=== PATIENT | male | born 1985 | race Caucasian/White ===

== ENCOUNTER → 2019-02-15 09:05 | Outpatient (CLI) | payer MEDICARE, SELFPAY ==
--- NOTE | 2019-02-15 09:08 | XR_ITS ---
XR wrist LT min 3V HISTORY ITS.REASON: pain ORDERING PHYSICIAN: Rosalva Ramirez APRN PATIENT AGE: 34 years Comparison: None FINDINGS: No fracture or dislocation. No lytic or blastic change. There is normal mineralization.. The joint spaces are well-preserved. No significant degenerative/arthritic changes. No erosive changes evident.. There is generalized vascular calcification. There is some cortical irregularity involving the distal aspect of the radial styloid process. There is a well-circumscribed calcific density on the AP view between the junction of the capitate, hamate, lunate and triquetrum. No other significant anomalies are evident. IMPRESSION: There is some minimal cortical irregularity involving the tip of the radial styloid process. This may be seen with underlying synovial inflammation. Rheumatoid arthritis could cause this finding.
== END ==
PROVIDERS: PCP Emergency Medicine; Visit Provider Nurse Practitioner Family
DX: M25.439 Effusion, unspecified wrist (principal); M25.532 Pain in left wrist
CPT/HCPCS: 73110

== ENCOUNTER → 2019-03-16 11:46 | Outpatient (CLI) | payer MEDICARE, SELFPAY ==
[2019-03-16 14:00] LABS: Erythrocyte Sedimentation Rate 133 mm/hr (0-15)
[2019-03-16 14:08] LABS: Basophils % 0.2 % (0.1-2.0); Eosinophils # 0.1 K/mm3 (0.0-0.4); Eosinophils % 2.3 % (0.1-12.0); Hematocrit 28.2 % (42.0-52.0); Hemoglobin 9.2 g/dL (14.1-18.0); Lymphocytes # 1.2 K/mm3 (0.7-4.5); Lymphocytes % 19.9 % (10-50); Mean Corpuscular HGB Conc 32.5 g/dL (31.8-35.4); Mean Corpuscular Hemoglobin 28.7 pg (27.0-31.2); Mean Corpuscular Volume 88.3 fl (80-94); Mean Platelet Volume 7.1 fl (7.4-10.4); Monocytes # 0.5 K/mm3 (0.1-1.0); Monocytes % 7.5 % (1.7-9.3); Neutrophils # 4.4 K/mm3 (1.8-7.8); Neutrophils % 70.1 % (37.0-80.0); Platelet Count 316 K/mm3 (142-424); Red Blood Count 3.19 M/mm3 (4.60-6.20); Red Cell Distribution Width 14.2 % (11.5-17.5); White Blood Count 6.2 K/mm3 (4.8-10.8)
[2019-03-16 14:31] LABS: Alanine Aminotransferase 16 U/L (12-78); Albumin Level 3.1 gm/dL (3.4-5.0); Alkaline Phosphatase 202 U/L (46-116); Anion Gap 17.2 mEq/L (5-15); Aspartate Amino Transferase 8 U/L (15-37); Bilirubin,Total 0.6 mg/dL (0.2-1.0); Blood Urea Nitrogen 65 mg/dL (7-18); C-Reactive Protein 0.7 mg/dL (0.0-0.9); Calcium 9.7 mg/dL (8.5-10.1); Carbon Dioxide 25 mmol/L (21.0-32.0); Chloride 102 mmol/L (98-107); Estimated Glomerular Filt Rate 8 ml/min (>60); GFR (African American) 9 ML/MIN (>60); Globulin 3.2 gm/dl (1.3-3.2); Glucose 108 mg/dL (74-106); Potassium 3.2 mmoL/L (3.5-5.1); Sodium 141 mmol/L (136-145); Total Protein,Serum 6.3 gm/dL (6.4-8.2)
[2019-03-16 14:34] LABS: Creatinine,Serum 7.86 mg/dL (0.70-1.30)
[2019-03-17 14:10] LABS: Anti-Centromere B Antibodies <0.2 AI (0.0-0.9); Anti-Jo-1 <0.2 AI (0.0-0.9); Anti-Smith Antibody <0.2 AI (0.0-0.9); Antichromatin Antibodies <0.2 AI (0.0-0.9); Antiscleroderma-70 Antibodies <0.2 AI (0.0-0.9); RNP Antibodies <0.2 AI (0.0-0.9); Sjogren's Anti-SS-A <0.2 AI (0.0-0.9); Sjogren's Anti-SS-B <0.2 AI (0.0-0.9)
[2019-03-18 06:13] LABS: Anti-Cyclic Citrullinated Pept <1 units (0-19); Anti-DNA (DS) Ab Qn <1 IU/mL (0-9); RA Latex Turbid. 14.1 IU/mL (0.0-13.9)
[2019-03-18 08:13] LABS: PTT-LA 44.9 sec (0.0-51.9); dRVVT 52.4 sec (0.0-47.0); dRVVT Mix 42.3 sec (0.0-47.0)
[2019-03-18 12:34] LABS: Lupus Reflex Interpretation Comment: (.)
== END ==
PROVIDERS: Visit Provider Nurse Practitioner Family
DX: M25.50 Pain in unspecified joint (principal); G47.00 Insomnia, unspecified
CPT/HCPCS: 36415; 80053; 85025; 85613; 85651; 86140; 86200; 86225; 86235; 86431

== ENCOUNTER → 2019-08-12 14:37 | Outpatient (CLI) | payer MEDICARE, SELFPAY ==
[2019-08-12 14:39] LABS: Microscopic, Urine URINE MICROSCOPIC (MICROSCOPIC)
[2019-08-12 15:04] LABS: Amphetamine/Metha Screen,Urine Negative ng/mL (<1000); Barbiturates Screen,Urine Negative ng/mL (<200); Benzodiazepines Screen,Urine Negative ng/mL (<200); Cannabinoid Screen,Urine Negative ng/mL (<50); Cocaine Screen,Urine Negative ng/mL (<300); Methadone Screen,Urine Negative ng/mL (<300); Opiate Screen,Urine Negative ng/mL (<300); Phencyclidine Screen,Urine Negative ng/mL (<25)
[2019-08-12 15:08] LABS: Appearance,Urine CLEAR (Clear); Bilirubin,Urine Negative (Negative); Blood, Urine 2+ (Negative); Color,Urine YELLOW (Yellow); Glucose,Urine (UA) Negative (Negative); Ketones,Urine Negative (Negative); Leukocyte Esterase,Urine 2+ (Negative); Nitrate,Urine Negative (Negative); Protein,Urine 3+ (Negative); Urobilinogen,Urine 0.2 EU/dl (0.2)
[2019-08-12 15:20] LABS: Amorphous Sediment,Urine 2+ /lpf; Bacteria,Urine 3+ /lpf; Mucus,Urine 2+ /lpf; WBC,Urine TNTC #/hpf (0-3)
== END ==
PROVIDERS: Visit Provider Nurse Practitioner Family
DX: Z79.899 Other long term (current) drug therapy (principal); R82.90 Unspecified abnormal findings in urine
CPT/HCPCS: 80305; 81001; 87086; 87088; 87186